=== PATIENT | female | born 1950 | race Caucasian/White ===

== ENCOUNTER → 2021-12-08 | Outpatient (CLI) | payer MEDICARE | LOC: RAD 14:49 | DX: M47.816 Spondylosis without myelopathy or radiculopathy, lumbar region (principal); M48.54XA Collapsed vertebra, not elsewhere classified, thoracic region, initial encounter for fracture ==

== ENCOUNTER 2022-02-07 08:57 | Inpatient (IN) | payer MEDICARE ==
--- NOTE | 2022-02-06 21:00 | NUR ---
Patient sitting up in recliner watching TV. Alert and oriented x 4. Reports intermittent right rib cage spasms due to bruised ribs after a fall on Easter. Requests tylenol and given along with HS meds. Patient stands with min assist after several attempts and ambulates with walker to the bathroom. Able to remove and apply night shirt but total assistance with shoes/lace up ankle braces and compression hose. Assisted with pajama pants. Patient is independent with HS care at sink and personal hygeine. Ambulates back to recliner and legs elevated. Will call when ready for bed. CPAP set up at bedside for patient.
[~2022-02-07] VITALS: Ht 152.4 cm; Wt 78.8 kg
[2022-02-07] MEDS ORDERED: FISH OIL 1,0001 EAC1 PO (14:59)
[2022-02-07] MEDS ORDERED: DULOXETINE60 MG PO (14:59)
[2022-02-07 15:00] VITALS: BP 116/48
[2022-02-07] MEDS ORDERED: GABAPENTIN100 MG PO (15:01)
[2022-02-07] MEDS ORDERED: GABAPENTIN400 M2 PO (15:01)
[2022-02-07] MEDS ORDERED: ALDACTONE 25MG25 MG PO (15:02)
[2022-02-07] MEDS ORDERED: FARXIGA10 MG PO (15:02)
[2022-02-07] MEDS ORDERED: NORCO 325 MG-7.1 TAB PO (15:03)
[2022-02-07] MEDS ORDERED: CARVEDILOL6.25 MG PO (15:05)
[2022-02-07] MEDS ORDERED: ELIQUIS5 MG PO (15:06)
[2022-02-07] MEDS ORDERED: ATORVASTATIN CA80 MG PO (15:06)
[2022-02-07] MEDS ORDERED: SOTALOL HYDROCH80 MG PO (15:07)
[2022-02-07] MEDS ORDERED: CYCLOBENZ5 MG PO (15:08)
[2022-02-07] MEDS ORDERED: FUROSEMIDE20 MG PO (15:08)
[2022-02-07] MEDS ORDERED: ENTRESTO 49 MG1 EACH PO (15:09)
[2022-02-07] MEDS ORDERED: COLACE100 M1 PO (15:11)
--- NOTE | 2022-02-07 15:15 | NUR ---
Patient arrived via personal vehicle with her 2 sons. Patient ambulatory with walker to room and several bags including her medications. Patient is alert and oriented x3, moves all extremeties well. Patient verbalizes that she is here for strengthening and to regain independence. Patient is having difficulty with dressing and getting on her own shoes, as well as the strength to walk around the home and she would like to be able to not use a walker anymore. Patient has history of falls at home and fall precautions have been reviewed. Patient offered the safe for her wallet and she declined. Patient did bring in home medications and will send them home with family; Hydrocodone was placed in safe and witnessed with THUY Mireles. Patient is resting quietly sitting in chair.
[2022-02-07 16:48] LABS: HEMATOCRIT 39.1 % (37.0-47.0); HEMOGLOBIN 12.6 g/dL (12.5-16.0); MEAN PLATELET VOLUME 10.6 fl (7.4-10.4); RED BLOOD COUNT 3.96 M/mm3 (4.10-5.30); RED CELL DISTRIBUTION WIDTH 12.7 % (11.5-14.5); WHITE BLOOD COUNT 7.7 K/mm3 (4.8-10.8)
[2022-02-07 16:51] LABS: ALBUMIN 3.7 g/dL (3.4-4.8)
[2022-02-07 16:52] LABS: POTASSIUM 4.2 mmol/L (3.5-5.1)
[2022-02-07 16:53] LABS: CALCIUM 9.3 mg/dL (8.3-10.5)
[2022-02-07 16:54] LABS: TOTAL PROTEIN 6.8 g/dL (6.2-8.1)
[2022-02-07 16:56] LABS: TOTAL BILIRUBIN 0.4 mg/dL (0.2-1.2)
[2022-02-07 17:07] VITALS: BP 116/48
[2022-02-07 17:41] VITALS: BP 100/58
--- NOTE | 2022-02-07 17:50 | NUR ---
APPLIED TELEMETRY; PATIENT HAS A PACER/DEFIB. COPY ON THE CHART.
[2022-02-07 17:55] VITALS: BP 116/48
--- NOTE | 2022-02-07 18:33 | NUR ---
Pt requests to go for a walk. This RN walks with patient around the whole hospital from room to clinic and around past the main entrance. Pt walks with personal walker and requires no assistance with ambulation. Pt able to position herself in the chair.
--- NOTE | 2022-02-07 19:07 | NUR ---
Report given to THUY Kovacs.
[2022-02-07 20:40] LABS: URINE APPEARANCE CLEAR; URINE COLOR YELLOW
[2022-02-07 20:41] LABS: URINE BILIRUBIN NEGATIVE (NEGATIVE); URINE BLOOD TRACE (NEGATIVE); URINE KETONE NEGATIVE (NEGATIVE); URINE LEUKOCYTE ESTERASE TRACE (NEGATIVE); URINE NITRATE NEGATIVE (NEGATIVE); URINE PROTEIN(semi-quant) NEGATIVE (NEGATIVE); URINE UROBILINOGEN NORMAL (NORMAL)
--- NOTE | 2022-02-07 21:00 | NUR ---
Patient sitting up in recliner watching TV. Alert and oriented x4. Pleasant. Reports intermittent right rib cage spasms due to bruised ribs after fall on Easter. Requests tylenol and given along with HS meds. Patient stands with min assist after several attempts and ambulates to the bathroom. Patient manages upper body dressing. Total assist with compression hose, lace up ankle braces and shoes off. Nurse assists with pajama pants on. Patient independent with hygiene and HS care at sink. Sits up in recliner with legs elevated. States will call when ready to go to bed. CPAP set up for patient at bedside.
--- NOTE | 2022-02-07 22:30 | NUR ---
BOREMATIC OPERATOR assisted patient to bed and with legs into bed.
--- NOTE | 2022-02-08 06:00 | NUR ---
Patient awakened for vitals and assisted to the bathroom with walker and voids and rests back in bed. Wore CPAP through the night. States she slept well this noc.
[2022-02-08 06:12] VITALS: BP 113/68
--- NOTE | 2022-02-08 09:41 | NUR ---
Patient resting in chair visiting with family on the cellphone. A&Ox4, RA, no c/o pain or discomfort. Reports she slept well last night. Eager to see family visiting this AM. Swallowed pills whole with water. BP 108/51, HR 73, taken prior to administering medications. Patient reports SBP should be between 100-110 d/t cardiac output and possible strain on heart. Patient OK to take AM medications to continue to maintaing approriate SBP. SBA with gait belt and walker to restroom. Independent with AM cares. Indepenedent with eating breakfast. Reports the food was well prepared. Reports she is enjoying her stay at [facility] and the staff have been pleasant. Chair in locked position. Call light within reach.
[2022-02-08 18:09] VITALS: BP 118/58
--- NOTE | 2022-02-08 19:00 | NUR ---
Report received from Alice DALEY.
[2022-02-08 21:30] VITALS: BP 127/66
--- NOTE | 2022-02-08 21:35 | NUR ---
Patient sitting up in recliner working on word puzzles. Reports intermittent right rib cage spasms. HS meds all reviewed along with tylenol and given. Patient alert and oriented x 4. Able to stand with slight difficulty and ambulate with walker to the bathroom. Gait slow, steady. Nurse removes shoes,braces and compression hose and patient undresses/dresses self and does HS care at sink. Ambulates with standby asssist and walker back to recliner. States she'll call when ready to go to bed. Patient initially wanted shower tonight but states is going to wait til tomorrow.
--- NOTE | 2022-02-08 23:00 | NUR ---
Assisted to bed and CPAP on.
--- NOTE | 2022-02-09 02:27 | NUR ---
Patient rests with eyes closed. Respirations with ease.
--- NOTE | 2022-02-09 05:41 | NUR ---
Patient awakened for am vitals. Reports she slept well this noc. SCRAPER MEAT assists patient up to the bathroom.
[2022-02-09 05:55] VITALS: BP 133/59
--- NOTE | 2022-02-09 07:00 | NUR ---
Report received from THUY Kovacs.
--- NOTE | 2022-02-09 10:00 | NUR ---
Assessment charted. Pt doing well. Resting in chair at side of bed, doing well, denies pain. Did take some tylenol prior to therapy to help with therapy. Denies needs, will will continue to monitor.
--- NOTE | 2022-02-09 13:02 | NUR ---
Assessment charted. Pt in bed resting, daughter at bedside, discussed need for OP IV antibiotics BID, set up PICC placement time for tomorrwoa t 1000 and will discuss with Daksha Hammond regarding time for infusions. Daughter agreeable but anticipating discharge today, discussed need for patience as provider is handling ER patients. Pt doing well, sititng in recliner with feet up. INT to RFA, will continue cyndi onitor.
[2022-02-09 18:10] VITALS: BP 127/57
--- NOTE | 2022-02-09 19:00 | NUR ---
Pt has done well today. Up with family around hallways. Doing well. Denies pain, prn tylenol given earlier this shift for therapy but none required beyond that. Report given to SHOSHANA Lakhani who will resume care.
--- NOTE | 2022-02-09 19:24 | NUR ---
Report received from Nicole DALEY. Patient sitting up in recliner watching TV. A/O x4. Denies pain, SOA or problems with B&B. TELE in place. Regular paced rhythm in 70's. Assessment completed. OUTPATIENT PHLEBOTOMIST in to provide a shower.
[2022-02-10 06:01] VITALS: BP 134/67
--- NOTE | 2022-02-10 07:12 | NUR ---
Rested well all night with no complaints. Report to Annette DALEY Student.
[2022-02-10 08:41] VITALS: BP 124/54
[2022-02-10 17:26] VITALS: BP 115/56
--- NOTE | 2022-02-10 17:59 | NUR ---
Pt a/o x4. Pt states that she is working to be able to go on a cruise to [place]. Pt c/o muscle aches from working muscles in PT. Pt refused PRN med. Pt refused warmed blanket to help muscles. Pt in chair, call light within reach.
--- NOTE | 2022-02-10 19:24 | NUR ---
Report received from Annette DALEY student. Patient up in recliner, has a visitor at this time. A/O x4. Denies pain or needs.
--- NOTE | 2022-02-10 20:35 | NUR ---
Assessment completed. Denies pain except to R side when she coughs. Denies need for analgesic. Requesting dose of Miralax tonight, will speak to provider. Assessment completed. RESEARCH INSTRUCTOR in to help get ready for bed.
--- NOTE | 2022-02-10 21:31 | NUR ---
Miralax taken in hot tea per request.
--- NOTE | 2022-02-11 05:29 | NUR ---
Up to BR with SBA and walker. No BM yet from Miralax. States she slept well after she got to sleep. Denies pain or needs at this time.
[2022-02-11 06:44] VITALS: BP 140/65
--- NOTE | 2022-02-11 06:52 | NUR ---
Report to Alice DALEY.
[2022-02-11 10:35] VITALS: BP 111/34
[2022-02-11 16:55] VITALS: BP 101/49
--- NOTE | 2022-02-11 18:34 | NUR ---
Patient A&O. Pleasant and happy with care. Pain in L ankle 05/20. Discussed with JYOTHI Hayden and foot x-ray ordered. Ambulates to the bathroom with SBA and walker. No acute needs this shift. Call light in reach and chair alarm on. Still no BM this shift, requests miralax to be given this evening.
--- NOTE | 2022-02-11 19:00 | NUR ---
Report received from Sabina Cook.
--- NOTE | 2022-02-11 21:15 | NUR ---
Patient just finished with HS care at sink and back to recliner. HS meds along with tylenol for pain prevention reviewed and given. Denies pain at this time. Order noted to DC tele and tele DC'd.
--- NOTE | 2022-02-12 05:53 | NUR ---
Patient states she rested well this noc. Wore cpap through the night.
[2022-02-12 06:14] VITALS: BP 123/94
--- NOTE | 2022-02-12 12:58 | NUR ---
Pt a/o x4. Pt very friendly and eating breakfast. She states that she slept well last night. Pt in chair, with braces and shoes in place. Pt has alarm set, call light within reach.
[2022-02-12 17:29] VITALS: BP 125/55
[2022-02-12 17:34] VITALS: BP 102/58
--- NOTE | 2022-02-12 19:00 | NUR ---
Report received from Annette director school of nursing.
--- NOTE | 2022-02-12 21:00 | NUR ---
Patient just finished with shower and dressing for HS accompanied by MATH TEACHER. Sits up in recliner and denies pain or needs at this time. Alert and oriented x4. HS meds reviewed and given.
[2022-02-13 06:09] VITALS: BP 120/73
--- NOTE | 2022-02-13 07:00 | NUR ---
Patient reports she slept well this noc.
--- NOTE | 2022-02-13 07:00 | NUR ---
Report received from THUY Kovacs.
--- NOTE | 2022-02-13 10:32 | NUR ---
Pt doing well, able to do most of own am cares. Discussed home medication that she is running out of and she will have family fruit or nut picker a new bottle at [facility] before Wednesday. Pt feeling well, denies pain. will continue to monitor.
[2022-02-13 17:11] VITALS: BP 126/85
--- NOTE | 2022-02-13 18:04 | NUR ---
Pt has done well over shift. Has had visitors today, up with walker and moving well. Denies needs, will give report to nightshift nurse who will resume care.
--- NOTE | 2022-02-13 19:06 | NUR ---
Report received from Nicole DALEY. Patient sitting up in recliner watching TV. A/O x4. Denies pain. Denies SOA or cough. States bowels are moving, no problems with bladder. Assessment completed. Discussed weekend exercise walking/program. Verbalizes understanding. Denies questions wants or needs at this time.
--- NOTE | 2022-02-14 00:17 | NUR ---
Rests with eyes closed. No signs of pain or distress. Bed alarm on. Call light in reach.
--- NOTE | 2022-02-14 06:14 | NUR ---
States rested well all night but "had some crazy dreams". Denies pain or needs this AM.
[2022-02-14 06:27] VITALS: BP 119/58
--- NOTE | 2022-02-14 06:58 | NUR ---
Report to Imelda DALEY.
--- NOTE | 2022-02-14 07:00 | NUR ---
Received report from SUDARSHAN Faith.
--- NOTE | 2022-02-14 08:45 | NUR ---
Patient A&Ox4. Sitting up in recliner. Assessment completed. Denies pain. Needs met. Call light within reach.
[2022-02-14 16:33] VITALS: BP 122/56
--- NOTE | 2022-02-14 18:37 | NUR ---
Report given to SUDARSHAN Faith.
--- NOTE | 2022-02-14 19:30 | NUR ---
Report received from Imelda DALEY. Patient sitting up in recliner, applying lotion to feet after having a shower assisted by eddie ELDER. A/O x4. Denies pain. Assessment completed. Requests and given PO Miralax in hot tea. Denies further wants or needs.
--- NOTE | 2022-02-15 05:24 | NUR ---
Rested well through the night. Awakened by staff for vital signs and weight. Up to BR with SBA and walker. Denies pain. Assisted back to bed. Bed alarm on. Call light in reach.
[2022-02-15 06:18] VITALS: BP 133/59
--- NOTE | 2022-02-15 06:51 | NUR ---
Report to Imelda DALEY.
--- NOTE | 2022-02-15 07:00 | NUR ---
Received report from SUDARSHAN Faith.
--- NOTE | 2022-02-15 15:00 | NUR ---
Report given to THUY Rivera.
[2022-02-15 16:55] VITALS: BP 123/45
--- NOTE | 2022-02-15 19:00 | NUR ---
Report received from Nicole DALEY.
--- NOTE | 2022-02-15 21:00 | NUR ---
Paient up to the bathroom accompanied by CYTOLOGY MANAGER and undresses/dresses self for the night and does HS care at sink. Denies pain. CYTOLOGY MANAGER assists with corey hose, ankle braces and shoes.
--- NOTE | 2022-02-16 05:57 | NUR ---
Patient reports she "slept very well". Assisted up to the bathroom and back to bed.
[2022-02-16 05:59] VITALS: BP 142/63
--- NOTE | 2022-02-16 13:11 | NUR ---
REPORT GIVEN TO ALVIN DALEY
[2022-02-16 17:08] VITALS: BP 116/46
--- NOTE | 2022-02-16 18:52 | NUR ---
Entire Medical record uploaded to [email or web address]. Awaiting determination with anticipated d/c of 02/19/22. Pts family would like one more week. Stair training and lower body training.
--- NOTE | 2022-02-16 19:00 | NUR ---
Report received from Imelda DALEY.
--- NOTE | 2022-02-16 20:15 | NUR ---
Patient sitting up in recliner watching TV. Reports has had intermittent low back spasms today and warm pack in place. Denies pain at this time or need for tylenol. Is dressed in night gown for HS. Declines walk in hallway. Alert and oriented x 4.
--- NOTE | 2022-02-16 22:32 | NUR ---
VESSEL CAPTAIN assists patient to bed.
--- NOTE | 2022-02-17 06:01 | NUR ---
Patient awakened for am vitals. Up to the bathroom with walker and rests back in bed. States she slept well this noc.
[2022-02-17 06:13] VITALS: BP 149/69
--- NOTE | 2022-02-17 10:09 | NUR ---
Pt a/o x4, denies pain. Pt eating breakfast. Pt states had a good night. Pt able to do own BLE dressing. Discussed pt's stay and plan of care. Pt states that she would like to stay longer than this week to continue PT/OT care and to build strength. Pt in chair, alarm set, call light within reach.
[2022-02-17 17:10] VITALS: BP 115/51
--- NOTE | 2022-02-17 19:49 | NUR ---
Report received from Nicole DALEY. Up in recliner watching TV. A/O x4. Denies pain, SOA or cough. Assessment completed. Requests shower tonight. SERVICE CLERK aware. Denies wants or needs at this time.
--- NOTE | 2022-02-18 05:17 | NUR ---
States rested well and denies pain. Awakened by staff for vital signs and weight. Up to BR with SBA and walker and back to bed.
[2022-02-18 05:53] VITALS: BP 131/75
--- NOTE | 2022-02-18 07:00 | NUR ---
Report received from PN. Lesvia
--- NOTE | 2022-02-18 08:54 | NUR ---
Assessment charted. Pt in chair eating breakfast well, selecting lunch options. Denies needs, does report pain in L thumb joint from arthritis and r side of ribs, PRN tylenol given per request. PT able to do own lower extremity dressings today. Up with walker SBA. Will continue to monitor.
[2022-02-18 15:53] VITALS: BP 159/84
[2022-02-18 16:23] VITALS: BP 127/47
--- NOTE | 2022-02-18 17:14 | NUR ---
Referral for home health sent to [facility], Fax No: [phone]. Waiting on acceptance. [facility] Choice for home health is [facility] [phone] Fax NO: [phone] Faxed information Waiting on acceptance
--- NOTE | 2022-02-18 18:41 | NUR ---
Pt has done well today, up with walker, moving well, denies pain or needs, taking PO well, will give report to nightshift nurse who will resume care.
--- NOTE | 2022-02-18 19:07 | NUR ---
Report received from Nicole DALEY. Up in recliner visiting with daughter in law. A/O x4. Denies pain or needs at this time.
--- NOTE | 2022-02-18 20:15 | NUR ---
Scheduled HS medications given. Assessment completed. Denies pain or needs. Sitting up in recliner watching TV.
--- NOTE | 2022-02-19 00:38 | NUR ---
Scheduled HS medications and assessment completed. Sitting up in recliner, got self ready for bed. Patient denies wants or needs.
--- NOTE | 2022-02-19 05:49 | NUR ---
Rested well all night without complaints. Up to BR this AM with SBA and walker. Denies pain/needs.
[2022-02-19 06:12] VITALS: BP 144/75
--- NOTE | 2022-02-19 07:00 | NUR ---
Report received from THUY Lakhani.
--- NOTE | 2022-02-19 07:06 | NUR ---
Report to Nicole DALEY.
--- NOTE | 2022-02-19 09:20 | NUR ---
Assessment charted. PT doing well, order received from Daksha for room privelages, pt very happy with this plan. Doing well, taking PO well, denies pain or other needs, will cotninue to monitor.
--- NOTE | 2022-02-19 11:29 | NUR ---
REPORT RECEIVED FROM QI DALEY.
--- NOTE | 2022-02-19 15:25 | NUR ---
PATIENT ASKS FOR [employer] DISCHARGE TOMORROW. COMBINED FAMILY EFFORT TO GET HER HOME AND AN EARLY TIME WOULD BE BEST. ALSO REQUESTS TDAP VACCINE. DISCUSS THIS WITH [place], SHE WILL GET BACK TO STAFF WITH ANSWER.
[2022-02-19 15:51] VITALS: BP 124/51
--- NOTE | 2022-02-19 19:25 | NUR ---
REPORT PROVIDED TO ADRIAN HEATON.
--- NOTE | 2022-02-19 21:15 | NUR ---
Report recieved from Carmen DALEY. Patient up in recliner. Independent in room. Providing own cares but states she still needs assistance with taking off her wraps to BLE at night. Planning on discharging home tomorrow. A/O x4. Denies pain. Assessment completed. HS medications taken. Denies wants or needs.
[2022-02-20 06:32] VITALS: BP 119/69
--- NOTE | 2022-02-20 07:46 | NUR ---
Report to Lynnette DALEY.
--- NOTE | 2022-02-20 11:50 | NUR ---
Patient alert and oriented. Denies pain. Denies dizziness or shortness of breath. Patient discharged to home. Discharge instructions provided. Patient verbalizes understanding and denies questions or needs at this time. Out of facility via wheelchair. Transfers into [facility] without incident. Steady gait noted.
== END 2022-02-20 11:50 | disposition home or self-care (01) | DRG 948 ==
LOC: MED/SURG 14:28
PROVIDERS: ADMIT Family Medicine
DX: R53.81 Other malaise (principal); I42.8 Other cardiomyopathies; I48.20 Chronic atrial fibrillation, unspecified; J44.9 Chronic obstructive pulmonary disease, unspecified; I89.0 Lymphedema, not elsewhere classified; I27.20 Pulmonary hypertension, unspecified; G47.33 Obstructive sleep apnea (adult) (pediatric); M85.80 Other specified disorders of bone density and structure, unspecified site; Z99.81 Dependence on supplemental oxygen; Z95.810 Presence of automatic (implantable) cardiac defibrillator; Z85.3 Personal history of malignant neoplasm of breast; Z96.652 Presence of left artificial knee joint; Z96.612 Presence of left artificial shoulder joint; Z91.81 History of falling; Z90.710 Acquired absence of both cervix and uterus; Z87.891 Personal history of nicotine dependence
CPT/HCPCS: 90715